=== PATIENT | female | born 1965 | race Hispanic/Latino ===

== ENCOUNTER 2018-04-16 06:28 | Day surgery (SDC) | payer OTHER ==
[2018-04-08 08:39] VITALS: BMI 24.2
[2018-04-16] MEDS ORDERED: Lidocaine 1% Inj (20ml) ONE (07:49)
[2018-04-16] MEDS ORDERED: Propofol 10 mg/ml Inj (20 ML) ONE ×2 (07:49→08:47)
[2018-04-16] MEDS ORDERED: Sodium Chloride 0.9% 1,000 ML IV SCH (09:15)
[2018-04-16 09:18] VITALS: O2SAT 100
[2018-04-16 10:18] VITALS: BP 120/71; PULSE 62; RESP 18; TEMP 97.6
== END 2018-04-16 10:26 | disposition home or self-care (01) ==
LOC: ENDO 06:28
PROVIDERS: ATTEND Internal Medicine Gastroenterology
DX: K21.0 Gastro-esophageal reflux disease with esophagitis (principal); Z12.11 Encounter for screening for malignant neoplasm of colon; K64.1 Second degree hemorrhoids; R13.10 Dysphagia, unspecified; K29.30 Chronic superficial gastritis without bleeding
CPT/HCPCS: 43239; 45378; 88305; 88312; 88342; J2704; J7030; J7040